=== PATIENT | male | born 1955 | race Caucasian/White ===

== ENCOUNTER 2023-01-14 10:37 | Day surgery (SDC) | payer BC ==
[~2023-01-14] VITALS: Ht 185.4 cm; Wt 80.0 kg
[2023-01-14 11:02] VITALS: BP 120/86
--- NOTE | 2023-01-14 13:42 | NUR ---
01/14/23 1342 Nell Hernandez 1337-PATIENT ARRIVED TO PACU ON 2L NC RR EVEN. PATIENT VERY DROWSY REACTIVE TO VERBAL STIMULI LAYING LEFT LATERAL. ABDOMEN SOFT. IVF INFUSING.
[2023-01-14 14:34] VITALS: BP 105/76
--- NOTE | 2023-01-14 21:59 | OR ---
[facility] [address], [place] [address] Signed DATE OF OPERATION: 01/14/2023 SURGEON: Joann Ghotra MD PREOPERATIVE DIAGNOSIS: Persistent abdominal bloating. POSTOPERATIVE DIAGNOSIS: Normal-appearing upper endoscopy. PROCEDURE: Esophagogastroduodenoscopy with biopsy. ANESTHESIA: Intravenous sedation; fentanyl 100 mcg and Versed 3 mg. INDICATION: This 67-year-old white man is a patient of YOSELYN Garcia. He has had multiple colonoscopies overtime, last one was three years ago. He has had polyps in the past. He is referred for upper endoscopy by YOSELYN Garcia on the basis of bloating and so forth. The patient has embarked upon a diet which has been helpful regarding his bloating symptoms. The patient has self-described "irritable bowel syndrome" for which he has long-standing symptoms, but different than in recent times regarding bloating. He does have family history of colon cancer. He is admitted at this time to undergo upper endoscopy to better characterize his bloating symptoms. He understands the risk of bleeding, infection, and perforation. FINDINGS: The esophagus, stomach and duodenum were essentially normal. There is no sign of esophagitis, neoplasm, Sorenson's epithelium in the stomach, though it did have some bile initially, did not appear to have gastritis proper. The duodenum was normal. CLOtest was negative. There was no sign of hiatal hernia. DESCRIPTION OF PROCEDURE: The patient was brought to the endoscopy suite and placed in the lateral decubitus position after undergoing topical lidocaine hypopharyngeal anesthesia. A bite block was placed and he was given intravenous sedation to the point of slurred speech and nystagmus with fentanyl and Versed. Full cardiopulmonary monitoring was maintained. A bite block was placed. Electronically Signed By: JOANN GHOTRA MD 01/14/23 2159 PATIENT NAME: JOHN MARTINEZ OPERATIVE REPORT DATE OF : 59 REPORT #: [id number] PHYSICIAN: JOANN GHOTRA MD PCP: Jean-Pierre CARO MD REPORT IS CONFIDENTIAL AND NOT TO BE RELEASED WITHOUT AUTHORIZATION [facility] [address], [place] [address] Signed An Olympus video upper endoscope was passed in the hypopharynx. The vocal cords appeared normal. The scope was easily passed in the esophagus. Throughout its length, it was normal. The scope was passed to the stomach which was insufflated with air. There was a small amount of bile within the stomach, but not much. Rugal folds were normal. Pylorus was normal and scope was passed through into the duodenum, which was also normal. Biopsies were taken of the distal duodenum as well as the midportion to assess for celiac disease. The scope was withdrawn and biopsies were taken of the antrum for both FELICIA and pathologic testing. Retroflexed view showed normal rugal folds and no sign of hiatal hernia. Scope was straightened and withdrawn and biopsies taken of the distal esophagus and ultimately the mid esophagus as well though they appeared clinically normal and without signs of Sorenson's or stricture or neoplasm. Scope was withdrawn and removed. The patient was taken to the recovery room in good condition. CONCLUDING DIAGNOSIS: Essentially normal esophagus, stomach and duodenum. PLAN: We will organize for a gallbladder ultrasound on the basis of his symptoms of "bloating." We will see him back in the office in four weeks or so. MD NELLIE Oreilly/BROWNL /[id number] cc: Frank Steel PA-C Copies: FRANK STEEL PAC ~ Electronically Signed By: JOANN GHOTRA MD 01/14/23 2159 PATIENT NAME: JOHN MARTINEZ OPERATIVE REPORT DATE OF : 59 REPORT #: [id number] PHYSICIAN: JOANN GHOTRA MD PCP: Jean-Pierre CARO MD REPORT IS CONFIDENTIAL AND NOT TO BE RELEASED WITHOUT AUTHORIZATION
--- NOTE | 2023-01-17 12:16 | PATH ---
[facility] [address] [place], [place] [address] Signed SPECIMEN(S): A DUODENAL BIOPSY SPECIMEN(S): B ANTRUM/ANTRAL BIOPSY SPECIMEN(S): C DISTAL ESOPHAGEAL BIOPSY SPECIMEN(S): D MID ESOPHAGEAL BIOPSY SPECIMEN SOURCE: A. DUODENAL BIOPSY B. ANTRUM/ANTRAL BIOPSY C. DISTAL ESOPHAGEAL BIOPSY D. MID ESOPHAGEAL BIOPSY CLINICAL HISTORY: Dx: Normal. Hx: Reflux. FINAL PATHOLOGIC DIAGNOSIS: A. Duodenal biopsy: - Benign duodenal mucosa, negative for specific diagnostic abnormality. B. Antrum/antral biopsy: - Benign gastric type mucosa with focal slight chronic inflammation. - Negative for evidence of Helicobacter organisms on routine HE stained sections. C. Distal esophageal biopsy: - Benign esophageal mucosa, negative for increased epithelial eosinophils. - Negative for glandular mucosa. D. Mid esophageal biopsy: - Benign esophageal mucosa, negative for increased epithelial eosinophils. JVR:huan MICROSCOPIC EXAMINATION: Histologic sections of all submitted blocks are examined by light microscopy. These findings, together with the gross examination, support the pathologic diagnosis. GROSS DESCRIPTION: A. The specimen, labeled and designated "Wuest, duodenum biopsy," is received in formalin and consists of three cordero soft tissue fragments, ranging from 0.1 to 0.2 cm. Entirely submitted in (A1). B. The specimen, labeled and designated "Wuest, antrum biopsy," is received in formalin and consists of two cordero soft tissue fragments, ranging from 0.1 to 0.2 cm. Entirely submitted in (B1). C. The specimen, labeled and designated "Wuest, distal esophagus biopsy," is PATIENT NAME: JOHN MARTINEZ PATHOLOGY DATE OF : 59 REPORT #: [id number] PHYSICIAN: MUNA LINDA PCP: Jean-Pierre CARO MD REPORT IS CONFIDENTIAL AND NOT TO BE RELEASED WITHOUT AUTHORIZATION [facility] [address] [place], [place] [address] Signed received in formalin and consists of three cordero soft tissue fragments, ranging from 0.1 to 0.5 cm. Entirely submitted in (C1). D. The specimen, labeled and designated "James, mid esophagus biopsy," is received in formalin and consists of two cordero soft tissue fragments, ranging from 0.1 to 0.3 cm. Entirely submitted in (D1). JS (under the direct supervision of a pathologist) The Gross Description was prepared using a voice recognition system. The report was reviewed for accuracy; however, sound-alike word errors, addition and/or deletions may occur. If there is any question about this report, please contact Client Services. PERFORMING LABORATORY: Technical component was performed by [facility], [address] [place] [id number] (CLIA# [id number]). Professional interpretation was performed by [facility] - [facility][1], [address] [place] [id number] (CLIA#: [id number]). Diagnostician: Yves Sorenson MD Pathologist Electronically Signed 01/17/2023 Copies: ~ PATIENT NAME: JOHN MARTINEZ PATHOLOGY DATE OF : 59 REPORT #: [id number] PHYSICIAN: MUNA LINDA PCP: Jean-Pierre CARO MD REPORT IS CONFIDENTIAL AND NOT TO BE RELEASED WITHOUT AUTHORIZATION
== END 2023-01-14 14:50 | disposition home or self-care (01) ==
LOC: OPS 10:37 → DS 10:37 → OPS 12:15 → DS 12:15 → OPS 14:50
PROVIDERS: ATTEND Surgery
PROC: 0DB98ZX Excision of Duodenum, Via Natural or Artificial Opening Endoscopic, Diagnostic (ICD-10-PCS; principal; 2023-01-14 12:15)
DX: K29.50 Unspecified chronic gastritis without bleeding (principal); R14.0 Abdominal distension (gaseous); Z86.010 Personal history of colon polyps
CPT/HCPCS: 99153; G0500; J2250; J3010; J7121